=== PATIENT | male | born 2000 | race Two or more races ===

== ENCOUNTER 2018-09-14 15:46 | Emergency (ER) | payer BC, OTHER ==
[~2018-09-14] VITALS: Ht 177.8 cm; Wt 90.7 kg
[2018-09-14 17:07] VITALS: BP 146/98
[2018-09-14] MEDS ORDERED: METHOCARBAMOL 500 MG TAB PO ONE (17:45)
[2018-09-14] MEDS ORDERED: IBUPROFEN 800 MG TAB PO ONE (17:45)
== END 2018-09-14 18:06 | disposition home or self-care (01) ==
LOC: ER 15:54
DX: S16.1XXA Strain of muscle, fascia and tendon at neck level, initial encounter (principal); S40.022A Contusion of left upper arm, initial encounter; V43.52XA Car driver injured in collision with other type car in traffic accident, initial encounter; Y93.89 Activity, other specified; Y99.8 Other external cause status; Y92.410 Unspecified street and highway as the place of occurrence of the external cause
CPT/HCPCS: 72050; 73060; 73090